=== PATIENT | male | born 2000 | race American Indian/Alaskan Native ===

== ENCOUNTER 2024-01-16 01:00 | Emergency (ER) | payer BC ==
[~2024-01-16] VITALS: Ht 175.3 cm; Wt 102.3 kg
[2024-01-16 01:07] VITALS: TEMP 99.7
[2024-01-16] MEDS ORDERED: Ibuprofen 600 MG TAB PO ONE (01:45)
[2024-01-16 02:39] VITALS: BP 133/79; PULSE 58
== END 2024-01-16 02:40 | disposition home or self-care (01) ==
LOC: COL.ER 01:00
DX: J06.9 Acute upper respiratory infection, unspecified (principal)